=== PATIENT | female | born 1995 | race Caucasian/White ===

== ENCOUNTER 2019-04-02 01:01 | Emergency (ER) | payer BC ==
[~2019-04-02] VITALS: Ht 170.2 cm; Wt 71.2 kg
[2019-04-02 01:05] VITALS: BP 124/79; Ht 170.2 cm; Wt 71.2 kg
== END 2019-04-02 03:04 | disposition left against medical advice (07) ==
LOC: ED 01:01
DX: Z53.21 Procedure and treatment not carried out due to patient leaving prior to being seen by health care provider (principal)